=== PATIENT | female | born 1965 | race African-American/Black ===

== ENCOUNTER 2021-07-06 09:03 | Outpatient (CLI) | payer OTHER | END 2021-07-06 09:04 | disposition home or self-care (01) | LOC: CSHRAD 09:03 | PROVIDERS: ATTEND Student in an Organized Health Care Education/Training Program | DX: G56.03 Carpal tunnel syndrome, bilateral upper limbs (principal); M19.041 Primary osteoarthritis, right hand; M19.042 Primary osteoarthritis, left hand ==